=== PATIENT | female | born 1995 | race Caucasian/White ===

== ENCOUNTER → 2017-11-20 | Outpatient (CLI) | payer OTHER | LOC: CIMAGING 13:56 | PROVIDERS: ATTEND Family Medicine | DX: S06.0X0D Concussion without loss of consciousness, subsequent encounter (principal); R51 Headache; R42 Dizziness and giddiness; R41.3 Other amnesia | CPT/HCPCS: 70450-PO ==

== ENCOUNTER 2018-09-08 15:10 | Emergency (ER) | payer OTHER ==
--- NOTE | 2018-09-08 16:05 | EDPHY ---
H & P Time Seen by Provider: 09/08/18 15:18 HPI/ROS: CHIEF COMPLAINT: Left anterior chest pain HISTORY OF PRESENT ILLNESS: Patient is a 21-year-old female on control pills who presents to the emergency department with left anterior chest pain. Her symptoms started today at around 2:00 p.m.. She describes the pain as sharp. It is worse when she moves to the left or sits up quickly. She states also worse when she takes a deep breath. She has had no cough or shortness of breath. No fevers or chills. No leg pain or swelling. Patient traveled to [place] by airplane in July. The patient denies family history. REVIEW OF SYSTEMS: 10 systems were reveiwed and are negative with the exception of the elements mentioned in the history of present illness. Past Medical/Surgical History: Exercise induced asthma Past surgical history: Noncontributory Social history: Patient does not smoke Family history: No clotting disease or cardiac disease. Smoking Status: Never smoked Physical Exam: Vitals noted. 36.6, 121/75, 75, 18, 98% on room air GENERAL: Well-appearing, in no acute distress, alert. HEENT: Eyes normal to inspection, normal pharynx, no signs of dehydration. NECK: Normal, supple. RESPIRATORY: Clear to auscultation bilaterally, no rales, rhonchi or wheezing. CVS: Regular rate and rhythm, no rubs, murmurs, or gallops. Chest wall. Patient has left anterior chest wall tenderness palpation at replicates her pain. No rash. No deformity. ABDOMEN: Soft, nontender, nondistended, no organomegaly. BACK: Normal to inspection, no CVA tenderness. SKIN: Normal color, no rash, warm, dry. No pallor. EXTREMITIES: No pedal edema, no calf tenderness, no Homans sign or cords, no joint swelling. NEURO/PSYCH: Alert and oriented, normal mood and affect, normal motor sensory exam. No obvious cranial nerve deficit. Constitutional: Initial Vital Signs Temperature (C) 36.6 C 09/08/18 15:14 Heart Rate 75 09/08/18 15:14 Respiratory Rate 18 09/08/18 15:14 Blood Pressure 121/75 H 09/08/18 15:14 O2 Sat (%) 98 09/08/18 15:14 O2 Delivery Mode Room Air Allergies/Adverse Reactions: amoxicillin Allergy (Verified 09/08/18 15:13) brompheniramine [From Dimetapp DM Cold-Cough (PE)] Allergy (Verified 09/08/18 15 :13) dextromethorphan [From Dimetapp DM Cold-Cough (PE)] Allergy (Verified 09/08/18 15:13) phenylephrine [From Dimetapp DM Cold-Cough (PE)] Allergy (Verified 09/08/18 15: 13) Home Medications: Medication Instructions Recorded Bcp 09/08/18 Medical Decision Making - Diagnostics Imaging Results: Imaging Impressions Chest X-Ray 09/08/18 17:17 IMPRESSION: Normal chest x-ray. ED Course/Re-evaluation: In the emergency department I discussed possible etiologies with the patient and mother. I answered all her questions. IV was placed. Laboratory studies, EKG and chest x-ray were obtained. Patient has a Well's rule of low risk. The patient's Perc rule is negative. EKG shows normal sinus rhythm, normal rate, normal axis, normal intervals. There are no ST or T-wave abnormalities. EKG is normal as interpreted by me. Patient's CBC and chemistry unremarkable. The patient's troponin is negative. Her D-dimer is normal. Chest x-ray: Please refer the dictated report. No acute disease noted. I discussed the results with the patient. I answered all her questions. She was given warnings prior to leaving. She will return with worsening symptoms. Differential Diagnosis: My differential includes but is not limited to pleurisy, pulmonary embolus, bronchitis, pneumonia, ACS, acute SD, dissection, aneurysm, costochondritis - Data Points Laboratory Results: Laboratory Results 09/08/18 16:12 09/08/18 16:12 09/08/18 09/08/18 09/08/18 16:13 16:12 16:12 WBC RBC Hgb Hct MCV MCH MCHC RDW Plt Count MPV Neut % (Auto) Lymph % (Auto) [place] % (Auto) Eos % (Auto) Baso % (Auto) Nucleat RBC Rel Count Absolute Neuts (auto) Absolute Lymphs (auto) Absolute Monos (auto) Absolute Eos (auto) Absolute Basos (auto) Absolute Nucleated RBC Immature Gran % Immature Gran # D-Dimer 0.45 ug/mLFEU ug/mLFEU (0.00-0.50) Sodium 135 mEq/L mEq/L (135-145) Potassium 3.9 mEq/L mEq/L (3.5-5.2) Chloride 105 mEq/L mEq/L (97-110) Carbon Dioxide 27 mEq/l mEq/l (22-31) Anion Gap 3 mEq/L L mEq/L (6-14) BUN 20 mg/dL mg/dL (7-23) Creatinine 0.8 mg/dL mg/dL (0.6-1.0) Estimated GFR > 60 Glucose 91 mg/dL mg/dL (70-100) Calcium 9.6 mg/dL mg/dL (8.5-10.4) Total Bilirubin 0.4 mg/dL mg/dL (0.1-1.4) Conjugated Bilirubin 0.2 mg/dL mg/dL (0.0-0.5) Unconjugated Bilirubin 0.2 mg/dL mg/dL (0.0-1.1) AST 17 IU/L IU/L (14-46) ALT 24 IU/L IU/L (9-52) Alkaline Phosphatase 44 IU/L IU/L (38-126) POC Troponin I 0.00 ng/mL ng/mL (0.00-0.08) Total Protein 6.5 g/dL g/dL (6.3-8.2) Albumin 4.0 g/dL g/dL (3.5-5.0) Lipase 29 IU/L IU/L (23-300) 09/08/18 16:12 WBC 6.59 10^3/uL 10^3/uL (3.80-9.50) RBC 4.45 10^6/uL 10^6/uL (4.18-5.33) Hgb 11.9 g/dL L g/dL (12.6-16.3) Hct 36.4 % L % (38.0-47.0) MCV 81.8 fL fL (81.5-99.8) MCH 26.7 pg L pg (27.9-34.1) MCHC 32.7 g/dL g/dL (32.4-36.7) RDW 13.5 % % (11.5-15.2) Plt Count 331 10^3/uL 10^3/uL (150-400) MPV 9.4 fL fL (8.7-11.7) Neut % (Auto) 48.3 % % (39.3-74.2) Lymph % (Auto) 40.1 % % (15.0-45.0) [place] % (Auto) 9.1 % % (4.5-13.0) Eos % (Auto) 1.7 % % (0.6-7.6) Baso % (Auto) 0.6 % % (0.3-1.7) Nucleat RBC Rel Count 0.0 % % (0.0-0.2) Absolute Neuts (auto) 3.19 10^3/uL 10^3/uL (1.70-6.50) Absolute Lymphs (auto) 2.64 10^3/uL 10^3/uL (1.00-3.00) Absolute Monos (auto) 0.60 10^3/uL 10^3/uL (0.30-0.80) Absolute Eos (auto) 0.11 10^3/uL 10^3/uL (0.03-0.40) Absolute Basos (auto) 0.04 10^3/uL 10^3/uL (0.02-0.10) Absolute Nucleated RBC 0.00 10^3/uL 10^3/uL (0-0.01) Immature Gran % 0.2 % % (0.0-1.1) Immature Gran # 0.01 10^3/uL 10^3/uL (0.00-0.10) D-Dimer Sodium Potassium Chloride Carbon Dioxide Anion Gap BUN Creatinine Estimated GFR Glucose Calcium Total Bilirubin Conjugated Bilirubin Unconjugated Bilirubin AST ALT Alkaline Phosphatase POC Troponin I Total Protein Albumin Lipase Medications Given: Discontinued Medications Ketorolac Tromethamine (Toradol) 30 mg IVP EDNOW ONE Stop: 09/08/18 16:08 Last Admin: 09/08/18 16:13 Dose: 30 mg Point of Care Test Results: Chemistry 09/08/18 16:13 POC Troponin I 0.00 ng/mL ng/mL (0.00-0.08) Departure - Departure Disposition: Home, Routine, Self-Care Clinical Impression: Chest pain Qualifiers: Chest pain type: unspecified Qualified Code(s): R07.9 - Chest pain, unspecified Condition: Good Instructions: Chest Pain (ED), Pleurisy (ED) Additional Instructions: Return with increasing chest pain, shortness of breath, fever, chills or any other concerns. Referrals: Britta Bates MD [Primary Care Provider] - 2-3 days, call for appt.
[2018-09-08] MEDS ORDERED: KETOROLAC 30 MG/1 ML SDV IVP ONE (16:07)
[2018-09-08 16:23] LABS: PLATELET COUNT 331 10^3/uL (150-400)
[2018-09-08 18:28] VITALS: BP 100/58
--- NOTE | 2018-09-09 10:56 | CPEKG ---
Test Reason : OPEN Blood Pressure : / mmHG Vent. Rate : 059 BPM Atrial Rate : 058 BPM P-R Int : 132 ms QRS Dur : 088 ms QT Int : 416 ms P-R-T Axes : 075 088 077 degrees QTc Int : 413 ms Sinus rhythm Nonspecific T abnrm, anterolateral leads Confirmed by Traci Krishna ([id number]) on 09/09/2018 10:56:09 AM Referred By: Confirmed By:Traci Krishna
== END 2018-09-08 18:32 | disposition home or self-care (01) ==
DX: R07.9 Chest pain, unspecified (principal)
CPT/HCPCS: 84484-ER; 96374; J1885